=== PATIENT | female | born 2000 | race Caucasian/White ===

== ENCOUNTER 2021-12-15 23:43 | Emergency (ER) | payer SELFPAY ==
[~2021-12-15] VITALS: Ht 152.4 cm; Wt 61.0 kg
[2021-12-16 00:10] VITALS: BP 110/72
[2021-12-16] MEDS ORDERED: ACETAMINOPHEN 325MG TABLET PO ONE (01:30)
== END 2021-12-16 01:57 | disposition home or self-care (01) ==
LOC: ER 23:43
DX: S09.8XXA Other specified injuries of head, initial encounter (principal); Y08.89XA Assault by other specified means, initial encounter; Y93.89 Activity, other specified; Y92.89 Other specified places as the place of occurrence of the external cause; Y99.8 Other external cause status; M79.18 Myalgia, other site
CPT/HCPCS: 73030; 99283